=== PATIENT | female | born 1965 | race Caucasian/White ===

== ENCOUNTER 2020-11-14 15:43 | Emergency (ER) | payer BC ==
[2020-11-14 15:56] VITALS: BP 153/81; PULSE 59; TEMP 98.4; BMI 26.6
[2020-11-14 19:27] LABS: BASO % 1.1 % (0-2.0); HEMATOCRIT 43.9 % (32.4-45.2); HEMOGLOBIN 14.8 GM/dL (10.7-15.3); MCHC 33.7 g/dl (32.0-36.0); MEAN CELL VOLUME 88.9 fl (80-96); MEAN PLT VOLUME 9.6 fl (7.5-11.1); MONO % 8.4 % (3.8-10.2); NEUT % 51.5 % (42.8-82.8); PLATELET COUNT 175 K/MM3 (134-434); RBC 4.94 M/mm3 (3.60-5.2); RDW 12.9 % (11.6-15.6); WHITE BLOOD COUNT 5.7 K/mm3 (4.0-10.0)
[2020-11-14 19:34] LABS: INR 1.03 (0.83-1.09); PROTHROMBIN TIME (PATIENT) 12.7 SEC (9.7-13.0)
[2020-11-14 19:36] LABS: ACTIVATED PTT 30.7 SECONDS (25.2-36.5)
[2020-11-14 19:40] LABS: CHLORIDE 107 mmol/L (98-107); SODIUM 140 mmol/L (136-145)
[2020-11-14 19:43] LABS: CALCIUM 8.8 mg/dL (8.5-10.1)
[2020-11-14 19:44] LABS: ALBUMIN 3.7 g/dl (3.4-5.0); ANION GAP 7 MMOL/L (8-16); BLOOD UREA NITROGEN 14.9 mg/dL (7-18); CO2 26 mmol/L (21-32); GLUCOSE,RANDOM 76 mg/dL (74-106); MAGNESIUM 2.3 mg/dL (1.8-2.4)
[2020-11-14 19:47] LABS: CREATININE 0.6 mg/dL (0.55-1.3); SGOT/AST 23 U/L (15-37); SGPT/ALT 32 U/L (13-61)
[2020-11-14 19:49] LABS: BILIRUBIN,TOTAL 1.4 mg/dL (0.2-1); TOT PROT 6.7 g/dl (6.4-8.2)
[2020-11-14 19:50] LABS: ALK PHOS 67 U/L (45-117)
== END 2020-11-14 20:36 | disposition home or self-care (01) ==
LOC: JER 15:43
DX: R00.2 Palpitations (principal)
CPT/HCPCS: 36415; 71046-TC-FY; 80053; 82550; 83735; 84484; 85025; 85610; 85730; 93005; 93010; 99285-25

== ENCOUNTER 2023-10-19 13:42 | Emergency (ER) | payer BC ==
[2023-10-19 13:55] VITALS: BP 147/92; PULSE 61; RESP 18; TEMP 98.9; BMI 25.6
[2023-10-19] MEDS ORDERED: IBUPROFEN 600 MG TABLET (FP) PO ONE (15:33)
[2023-10-19] MEDS ORDERED: guaiFENesin 200 MG/10 ML 10 ML UNIT-DOSE CUPS ONE (15:33)
[2023-10-19] MEDS: IBUPROFEN 600 MG TABLET (FP) PO ONE (15:43)
[2023-10-19] MEDS: guaiFENesin/D-METHORPHAN HB 10 ML UNIT-DOSE CUPS PO ONE (15:43)
== END 2023-10-19 16:07 | disposition home or self-care (01) ==
LOC: JERFT 13:42
DX: J06.9 Acute upper respiratory infection, unspecified (principal); B34.9 Viral infection, unspecified; R09.81 Nasal congestion; R07.0 Pain in throat; R05.9 Cough, unspecified; R07.9 Chest pain, unspecified; R09.89 Other specified symptoms and signs involving the circulatory and respiratory systems; Z20.822 Contact with and (suspected) exposure to COVID-19
CPT/HCPCS: 0241U-QW; 99283-25